=== PATIENT | male | born 1970 | race Caucasian/White ===

== ENCOUNTER → 2021-08-31 | Outpatient (CLI) | payer OTHER ==
[~2021-08-31] MED LIST: AMOXICILLIN500 M1 PO; ASPIRIN EC325 M1 PO; BAYER CHEWABLE81 MG PO; CARDIZEM CD240 MG PO; DILTIAZEM ER120 M2 PO; HYDROXYZINE HCL25 M1 PO; NAPROSYN500 MG PO; PROTONIX40 M4 PO; SORINE 80 MG TA80 M1 PO
== END ==
LOC: CAT 11:12
PROVIDERS: ATTEND Internal Medicine Cardiovascular Disease
DX: Z13.6 Encounter for screening for cardiovascular disorders (principal); E78.00 Pure hypercholesterolemia, unspecified; I25.10 Atherosclerotic heart disease of native coronary artery without angina pectoris